=== PATIENT | female | born 1940 ===

== ENCOUNTER 2018-11-25 09:25 | Outpatient (CLI) | payer OTHER ==
[~2018-11-25] VITALS: Ht 152.4 cm; Wt 45.4 kg
== END 2018-11-25 09:45 | disposition home or self-care (01) ==
LOC: OFIC 805 09:25
DX: H93.13 Tinnitus, bilateral (principal); H90.3 Sensorineural hearing loss, bilateral

== ENCOUNTER 2018-12-16 08:45 | Outpatient (CLI) | payer OTHER ==
[~2018-12-16] VITALS: Ht 152.4 cm; Wt 45.4 kg
== END 2018-12-16 09:00 | disposition home or self-care (01) ==
LOC: OFIC 805 08:45
DX: H93.13 Tinnitus, bilateral (principal); H90.3 Sensorineural hearing loss, bilateral

== ENCOUNTER 2019-01-06 09:01 | Outpatient (CLI) | payer OTHER ==
[~2019-01-06] VITALS: Ht 152.4 cm; Wt 45.4 kg
== END 2019-01-06 09:15 | disposition home or self-care (01) ==
LOC: OFIC 805 09:01
DX: H93.13 Tinnitus, bilateral (principal); H90.3 Sensorineural hearing loss, bilateral

== ENCOUNTER 2021-02-25 07:26 | Day surgery (SDC) | payer OTHER ==
[~2021-02-25 07:26] MED LIST: BAYER THERAPY325 MG PO; TENORMIN25 MG PO
== END 2021-02-25 17:15 | disposition home or self-care (01) ==
LOC: CIR.AMB 07:26
PROVIDERS: ATTEND Orthopaedic Surgery Hand Surgery
DX: M66.241 Spontaneous rupture of extensor tendons, right hand (principal); M66.231 Spontaneous rupture of extensor tendons, right forearm; Z20.822 Contact with and (suspected) exposure to COVID-19